=== PATIENT | female | born 1955 | race Caucasian/White ===

== ENCOUNTER 2017-05-31 11:20 | Emergency (ER) | payer MEDICAID ==
[~2017-05-31] VITALS: Ht 160 cm; Wt 77.5 kg
[~2017-05-31 11:20] MED LIST: LORA-186 PO; SULF1TAB7 PO
[2017-05-31 11:23] VITALS: Ht 160 cm; Wt 77.5 kg
[2017-05-31] MEDS ORDERED: HYDROmorphONE 1 MG/ML SYG IV STA (15:29)
[2017-05-31] MEDS ORDERED: ONDANSETRON 4 MG INJ IV STA (15:29)
[2017-05-31 16:25] LABS: ADD UMIC YES; UR ASCORBIC ACID NEGATIVE (NEGATIVE); UR BILIRUBIN (Dip) NEGATIVE (NEGATIVE); UR BLOOD (Dip) NEGATIVE (NEGATIVE); UR CLARITY CLEAR (CLEAR); UR COLOR YELLOW (YELLOW); UR GLUCOSE (Dip) NEGATIVE (NEGATIVE); UR KETONES (Dip) NEGATIVE (NEGATIVE); UR LEUKOCYTE ESTERASE (Dip) 3+ Leu/ul (NEGATIVE); UR NITRITE (Dip) NEGATIVE (NEGATIVE); UR RBC 2 /HPF (0-5); UR SPECIFIC GRAVITY (Dip) 1.019 (1.003-1.030); UR TOTAL PROTEIN (Dip) NEGATIVE (NEGATIVE); UR UROBILINOGEN (Dip) NEGATIVE (NEGATIVE)
[2017-05-31] MEDS ORDERED: IBUP-1542 PO (16:44)
[2017-05-31] MEDS ORDERED: OMEP40CA6 PO (16:45)
[2017-05-31] MEDS ORDERED: CALC-84 PO (16:46)
[2017-05-31 16:47] LABS: BASOPHILS % 0.4 % (0.0-2.0); EOSINOPHILS # 0.1 10^3/ul (0.0-0.5); HEMOGLOBIN 13.7 g/dl (12.0-16.0); LYMPHOCYTES # 2.1 10^3/ul (0.8-2.9); LYMPHOCYTES % 30.3 % (15.0-51.0); MEAN CORPUSCULAR HEMOGLOBIN 31.5 pg (29.0-33.0); MEAN CORPUSCULAR HGB CONC 34.3 g/dl (32.0-37.0); MONOCYTE # 0.5 10^3/ul (0.3-0.9); MONOCYTES % 7.5 % (0.0-11.0); NEUTROPHILS % 60.7 % (39.0-77.0); PLATELET COUNT 161 10^3/UL (140-415); RED BLOOD COUNT 4.35 10^6/ul (4.20-5.40); RED CELL DISTRIBUTION WIDTH 12.8 % (11.5-14.5); WHITE BLOOD COUNT 6.9 10^3/ul (4.8-10.8)
[2017-05-31 17:20] LABS: ALBUMIN/GLOBULIN RATIO 1.08; BILIRUBIN,INDIRECT 0.3 mg/dl (0-1.1); BILIRUBIN,TOTAL 0.3 mg/dl (0.2-1.3); CALCIUM 9.1 mg/dl (8.4-10.2); CREATININE 0.56 mg/dl (0.44-1.00); POTASSIUM 4.1 mmol/L (3.5-5.1); TOTAL PROTEIN 7.7 g/dl (6.1-8.1)
[2017-05-31] MEDS ORDERED: IOHEXOL 300MG/ML 150 ML BTL ONE (18:12)
[2017-05-31] MEDS ORDERED: SOD CHLORIDE 0.9% 100 ML ONE (18:12)
--- NOTE | 2017-05-31 18:51 | RADRPT ---
PROCEDURE: CT abdomen and pelvis with contrast. CLINICAL INDICATION: Abdominal pain. TECHNIQUE: CT scan of the abdomen and pelvis with contrast was performed. Coronal and sagittal im ages were also reformatted. 100 cc Omnipaque-300 intravenous contrast was administered without comp lication. One or more of the following dose reduction techniques were used: Automated exposure contr ol, adjustment of the mA and/or kV according to patient size, use of iterative reconstruction techni que. Total exam CTDIvol = 18.05 mGy and DLP = 964.41 mGy-cm. COMPARISON: None available. FINDINGS: Visualized lower thorax: Left greater than right posterior subsegmental atelectasis or scarring is n oted. There is no evidence for pleural effusion. Liver, gallbladder, pancreas and spleen: Normal hepatic contour, attenuation in size. Mild postope rative intrahepatic ductal prominence is present. There is no evidence of liver mass. Findings are compatible with prior cholecystectomy. No common bile duct dilatation is evident. The pancreas is normal. The spleen is normal, not enlarged. Adrenal glands and genitourinary system: The adrenal glands are normal bilaterally. The kidneys ar e normal in size, contour and attenuation with no evidence for masses, calculi or hydronephrosis. I ncidental parapelvic cyst of the interpolar left kidney is approximately 1.6 cm. The ureters are un remarkable. The urinary bladder shows no abnormality. The uterus is atrophic. No ovarian or adnex al masses are seen. There is no evidence of free fluid in the cul-de-sac. Gastrointestinal system: The stomach, small bowel and large intestine are normal in caliber. There is no evidence of obstruction, ileus or inflammation. The appendix and surrounding fat are normal. There is no colonic wall thickening to suggest colitis and no diverticulitis changes are present. Peritoneum, retroperitoneum, vessels and lymph nodes: The abdominal aorta is normal in caliber. Th ere is trace aortic and iliac atherosclerotic calcification. Inferior vena cava is normal in calibe r. There is no evidence for adenopathy. The peritoneal cavity is normal with no evidence for ascit es. No pneumoperitoneum is present. Osseous structures and musculoskeletal system: There is no evidence for acute osseous abnormality o r muscular pathology. Mild thoracolumbar spondylosis is noted. Incidental calcified gluteal granul omata are present. RPTAT:HJJR IMPRESSION: 1. No evidence of acute intra-abdominal or intrapelvic pathology. 2. Post cholecystectomy changes with associated mild intrahepatic ductal prominence. 3. Parapelvic interpolar cyst of the left kidney. No imaging follow-up is recommended. 4. Minimal atherosclerotic calcification of the aorta and iliac system. 5. Posterior basilar scarring or subsegmental atelectasis in the left greater than right lower lobe . Physician Arnoldo Date Time Electronically viewed and signed by Riley Marrero Physician on 05/31/2017 18:51 /
[2017-05-31] MEDS ORDERED: ONDA4TAB14 PO (19:48)
[2017-05-31] MEDS ORDERED: HYDR-902 PO (19:48)
[2017-05-31] MEDS ORDERED: METH750T93 PO (19:48)
--- NOTE | 2017-05-31 19:52 | ERD ---
ER Documentation Chief Complaint Date/Time DATE: 05/31/17 TIME: 19:49 Chief Complaint MID ABD PAIN , MID BACK PAIN X 1 WEEK . DENIES N/V/D HPI This is 61-year-old female complains of diffuse abdominal pain for the past 3 days described as crampy. The patient has no vomiting or diarrhea but does have some nausea. She does not know she has got a bad food exposure. No fever no chest pain shortness of breath no melena. She has a chronic disc bulge in her lumbar region causing some pain radiates down her left leg which is not new and unchanged. No loss of bowel or bladder. ROS All systems reviewed and are negative except as per history of present illness. Medications Home Meds Active Scripts Methocarbamol* (Robaxin*) 750 Mg Tablet, 750 MG PO TID, #20 TAB Prov:OLIMPIA HARRELL DO 05/31/17 Ondansetron (Ondansetron Odt) 4 Mg Tab.rapdis, 4 MG PO Q6H Y for NAUSEA AND/OR VOMITING, #10 TAB Prov:OLIMPIA HARRELL DO 05/31/17 Hydrocodone/Acetaminophen ([place] 10-325 Tablet) 1 Each Tablet, 1 TAB PO Q6H Y for PAIN, #20 TAB Prov:OLIMPIA HARRELL DO 05/31/17 Reported Medications Calcium Carbonate-Vitamin D3 (Calcium 500 + D Tablet) 1 Each Tablet, 1 TAB PO BID, TAB 05/31/17 Omeprazole* (Omeprazole*) 40 Mg Capsule.dr, 40 MG PO BID, #30 CAP 05/31/17 Ibuprofen* (Ibuprofen*) 600 Mg Tablet, 600 MG PO Q4 Y for PAIN, TAB 05/31/17 Discontinued Reported Medications Loratadine* (Claritin*) 10 Mg Tablet, 10 MG PO DAILY, TAB 10/02/14 Sulfamethoxazole-Trimethoprim* (Bactrim* DS) 800-160 Mg Tab, 1 TAB PO BID X 10 DAYS, TAB 10/02/14 Allergies Allergies: Coded Allergies: Penicillins (Verified Allergy, Unknown, 05/31/17) codeine (Verified Allergy, Unknown, PALPITATION, SOB, 05/31/17) lidocaine (Verified Allergy, Unknown, 05/31/17) PMhx/Soc History of Surgery: Yes (R SHOULDER, L FOOT) Anesthesia Reaction: No Hx Neurological Disorder: No Hx Respiratory Disorders: No Hx Psychiatric Problems: No Hx Miscellaneous Medical Probl: Yes (HIGH CHOLESTEROL) Hx Alcohol Use: No Hx Substance Use: No Hx Tobacco Use: No Smoking Status: Never smoker FmHx Family History: No coronary disease Physical Exam Vitals Vital Signs Date Time Temp Pulse Resp B/P Pulse Ox O2 Delivery O2 Flow Rate FiO2 05/31/17 17:25 79 18 124/69 98 Room Air 05/31/17 11:23 98.1 83 18 125/59 99 Physical Exam Const: Well-developed, well-nourished Head: Atraumatic, normocephalic Eyes: Normal Conjunctiva, PERRLA, EOMI, normal sclera, no nystagmus ENT: Normal External Ears, Nose and Mouth, moist mucus membranes. Neck: Full range of motion. No meningismus, no lymphadenopathy. Resp: Clear to auscultation bilaterally, no wheezing, rhonchi, rales Cardio: Regular rate and rhythm, no murmurs, S1 S2 present Abd: Soft, diffuse mild tenderness non distended. Normal bowel sounds, no guarding or rebound, no pulsitile abdominal masses or bruits Skin: No petechiae or rashes, no ecchymosis , no maculopapular rash Back: No midline or flank tenderness Ext: No cyanosis, or edema, FROM x 4, normal inspection, neurovascularly intact x 4 Neur: Awake and alert, STR 5/5 x 4, sensation intact x 4, no focal findings, cerebellum intact Psych: Normal Mood and Affect Const: [] Head: Atraumatic Eyes: Normal Conjunctiva ENT: Normal External Ears, Nose and Mouth. Neck: Full range of motion..~ No meningismus. Resp: Clear to auscultation bilaterally Cardio: Regular rate and rhythm, no murmurs Abd: Soft, non tender, non distended. Normal bowel sounds Skin: No petechiae or rashes Back: No midline or flank tenderness Ext: No cyanosis, or edema Neur: Awake and alert Psych: Normal Mood and Affect Result Diagram: 05/31/17 1548 05/31/17 1548 Results 24 hrs Laboratory Tests Test 05/31/17 15:47 05/31/17 15:48 Urine Color YELLOW Urine Clarity CLEAR Urine pH 6.0 Urine Specific [place] 1.019 Urine Ketones NEGATIVEmg/dL Urine Nitrite NEGATIVEmg/dL Urine Bilirubin NEGATIVEmg/dL Urine Urobilinogen NEGATIVEmg/dL Urine Leukocyte Esterase 3+Rivera/ul Urine Microscopic RBC 2/HPF Urine Microscopic WBC 19/HPF Urine Hemoglobin NEGATIVEmg/dL Urine Glucose NEGATIVEmg/dL Urine Total Protein NEGATIVEmg/dl White Blood Count 6.910^3/ul Red Blood Count 4.3510^6/ul Hemoglobin 13.7g/dl Hematocrit 40.0% Mean Corpuscular Volume 92.0fl Mean Corpuscular Hemoglobin 31.5pg Mean Corpuscular Hemoglobin Concent 34.3g/dl Red Cell Distribution Width 12.8% Platelet Count 19802^3/UL Mean Platelet Volume 12.0fl Neutrophils % 60.7% Lymphocytes % 30.3% Monocytes % 7.5% Eosinophils % 1.0% Basophils % 0.4% Nucleated Red Blood Cells % 0.0/100WBC Neutrophils # (Manual) 4.210^3/ul Lymphocytes # 2.110^3/ul Monocytes # 0.510^3/ul Eosinophils # 0.110^3/ul Basophils # 0.010^3/ul Nucleated Red Blood Cells # 0.010^3/ul Sodium Level 141mmol/L Potassium Level 4.1mmol/L Chloride Level 107mmol/L Carbon Dioxide Level 25mmol/L Anion Gap 13 Blood Urea Nitrogen 16mg/dl Creatinine 0.56mg/dl Glucose Level 97mg/dl Calcium Level 9.1mg/dl Total Bilirubin 0.3mg/dl Direct Bilirubin 0.00mg/dl Indirect Bilirubin 0.3mg/dl Aspartate Amino Transf (AST/SGOT) 22IU/L Alanine Aminotransferase (ALT/SGPT) 24IU/L Alkaline Phosphatase 77IU/L Total Protein 7.7g/dl Albumin 4.0g/dl Globulin 3.70g/dl Albumin/Globulin Ratio 1.08 Lipase 467U/L Current Medications Medications (Trade) Dose Ordered Sig/Lucas Route PRN Reason Start Time Stop Time Status Last Admin Dose Admin Hydromorphone HCl (Dilaudid) 1 mg ONCE STAT IV 05/31/17 15:29 05/31/17 15:30 DC 05/31/17 15:52 Ondansetron HCl (Zofran Inj) 4 mg ONCE STAT IV 05/31/17 15:29 05/31/17 15:30 DC 05/31/17 15:51 IV Flush 10 ml 10 ml STK-MED ONCE .ROUTE 05/31/17 18:12 05/31/17 18:13 DC 05/31/17 18:25 Sodium Chloride (NS) 100 ml @ ud STK-MED ONCE .ROUTE 05/31/17 18:12 05/31/17 18:13 DC 05/31/17 18:26 Iohexol (Omnipaque 300mg/ ml) 150 ml STK-MED ONCE .ROUTE 05/31/17 18:12 05/31/17 18:13 DC 05/31/17 18:26 Procedures/MDM PROCEDURE: CT abdomen and pelvis with contrast. CLINICAL INDICATION: Abdominal pain. TECHNIQUE: CT scan of the abdomen and pelvis with contrast was performed. Coronal and sagittal images were also reformatted. 100 cc Omnipaque-300 intravenous contrast was administered without complication. One or more of the following dose reduction techniques were used: Automated exposure control, adjustment of the mA and/or kV according to patient size, use of iterative reconstruction technique. Total exam CTDIvol = 18.05 mGy and DLP = 964.41 mGy-cm. COMPARISON: None available. FINDINGS: Visualized lower thorax: Left greater than right posterior subsegmental atelectasis or scarring is noted. There is no evidence for pleural effusion. Liver, gallbladder, pancreas and spleen: Normal hepatic contour, attenuation in size. Mild postoperative intrahepatic ductal prominence is present. There is no evidence of liver mass. Findings are compatible with prior cholecystectomy. No common bile duct dilatation is evident. The pancreas is normal. The spleen is normal, not enlarged. Adrenal glands and genitourinary system: The adrenal glands are normal bilaterally. The kidneys are normal in size, contour and attenuation with no evidence for masses, calculi or hydronephrosis. Incidental parapelvic cyst of the interpolar left kidney is approximately 1.6 cm. The ureters are unremarkable. The urinary bladder shows no abnormality. The uterus is atrophic. No ovarian or adnexal masses are seen. There is no evidence of free fluid in the cul-de-sac. Gastrointestinal system: The stomach, small bowel and large intestine are normal in caliber. There is no evidence of obstruction, ileus or inflammation. The appendix and surrounding fat are normal. There is no colonic wall thickening to suggest colitis and no diverticulitis changes are present. Peritoneum, retroperitoneum, vessels and lymph nodes: The abdominal aorta is normal in caliber. There is trace aortic and iliac atherosclerotic calcification. Inferior vena cava is normal in caliber. There is no evidence for adenopathy. The peritoneal cavity is normal with no evidence for ascites. No pneumoperitoneum is present. Osseous structures and musculoskeletal system: There is no evidence for acute osseous abnormality or muscular pathology. Mild thoracolumbar spondylosis is noted. Incidental calcified gluteal granulomata are present. RPTAT:HJJR IMPRESSION: 1. No evidence of acute intra-abdominal or intrapelvic pathology. 2. Post cholecystectomy changes with associated mild intrahepatic ductal prominence. 3. Parapelvic interpolar cyst of the left kidney. No imaging follow-up is recommended. 4. Minimal atherosclerotic calcification of the aorta and iliac system. 5. Posterior basilar scarring or subsegmental atelectasis in the left greater than right lower lobe. Physician Arnoldo Date Time Electronically viewed and signed by Physician Arnoldo on 05/31/2017 18:51 JR/ CC: OLIMPIA HARRELL DO Blood work looks good no evidence of any intra-abdominal pathology on CT scan. While the patient did a clear liquid diet for 24 hours because her some slight elevation of her lipase. We will provide her with some medication for her pinched month chronic back pain. Told her to observe herself at home and signs and symptoms for which to return Departure Diagnosis: Primary Impression: Abdominal pain Abdominal location: generalized Qualified Code: R10.84 - Generalized abdominal pain Condition: Stable Patient Instructions: Abdominal Pain Referrals: DOCTOR,NOT ON STAFF (PCP) OLIMPIA HARRELL DO May 31, 2017 19:52
[2017-05-31 20:52] VITALS: BP 126/74; PULSE 92; RESP 16; TEMP 98.1
== END 2017-05-31 20:52 | disposition home or self-care (01) ==
LOC: E/R 11:20
DX: R10.84 Generalized abdominal pain (principal)
CPT/HCPCS: 36415; 74177; 80053; 81001; 83690; 85025; 96374; 96375; J1170; J2405; Q9967; Z7502; Z7610

== ENCOUNTER 2017-10-31 10:45 | Emergency (ER) | END 2017-10-31 14:25 | disposition home or self-care (01) ==